=== PATIENT | male | born 1955 | race Caucasian/White ===

== ENCOUNTER 2024-09-29 07:58 | Emergency (ER) | payer OTHER, SELFPAY ==
[2024-09-29 08:08] VITALS: BP 144/110
[2024-09-29 08:14] VITALS: BP 155/118
[2024-09-29 08:18] VITALS: BMI 35.3
[2024-09-29 08:23] VITALS: BP 174/101
--- NOTE | 2024-09-29 08:23 | ED.GENMED ---
History of Present Illness
<Raúl Watson PA-C - Last Filed: 09/29/24 10:17>
General
Chief Complaint: Heart Rate Problem
Source: patient
Time Seen by Provider: 09/29/24 08:10
History of Present Illness
History of Present Illness:
69-year-old male with past medical history of hypertension, previous SVT and previous atrial fibrillation presenting to the emergency department after he was packing his car getting ready to go on a short trip when he noticed a fluttering sensation
in his chest that felt similar to previous episodes of SVT and A-fib. Patient states that other than feeling a little shaky from the elevated heart rate he otherwise feels fine. He took his usual medications as prescribed including his 100 mg of
p.o. metoprolol and 5 mg of Eliquis. He does note that over the weekend he felt he was having a gout flare and went to the urgent care who prescribed him prednisone and he is on day 2 of this. Denies any fevers or infectious symptoms. No chest
pain, no shortness of breath, no exertional dyspnea, no orthopnea, no cough, no fevers or infectious symptoms.
Past History
<Raúl Watson PA-C - Last Filed: 09/29/24 10:17>
Past History
ED Past Medical History: Arrthythmia (SVT), Cancer (Melanoma), HTN and Hypercholesterolemia
ED Past Surgical History: Orthopedic and Other
Social History
Tobacco: Non-smoker
Alcohol: None
Drug: None
Personal:
Living: with family
Review of Systems
<Raúl Watson PA-C - Last Filed: 09/29/24 10:17>
Review of Systems
All Other Systems: ROS reviewed and negative except as documented in HPI and ROS
Phy Exam
<Raúl Watson PA-C - Last Filed: 09/29/24 10:17>
Physical Exam
Physical Exam:
GENERAL: Alert , in no apparent distress
EYE: Clear conjunctiva
NECK: Supple
ENT: o/p clr, mmm.
CARDIAC: tachycardic, appears regular, rate between 150 and 170 bpm
LUNGS: Clear breath sounds bilaterally, no acute respiratory distress,
ABDOMEN: Soft, without focal tenderness, no r/g, no cvat
NEUROLOGICAL: Alert and oriented
SKIN: Warm and dry, skin intact.
MUSCULOSKELETAL: No edema, well perfused.
PSYCH: Normal and appropriate interaction.
Scores
<Raúl Watson PA-C - Last Filed: 09/29/24 10:17>
[id number] Score for Afib Stroke Risk
Age in Years (65=0, 65-74=1, >/=75=2): 65-74
Sex (Female=+1): Male
Congestive Heart Failure History (Yes=+1): No
Hypertension History (Yes=+1): Yes
Stroke/TIA/Thromboembolism History (Yes=+2): No
Vascular Disease History (Yes=+1): No
Diabetes Mellitus (Yes=+1): No
Score: 2
Anticoagulation Recommendations: Recommend anticoagulation (as validated in nonvalvular fib)
Heart Failure Risk
Heart Failure Risk Score: Not Applicable
Heart Score for Chest Pain Patients
STEMI patient?: Not applicable
Withdrawal Assessment of Alcohol
Withdrawal Assessment Completed?: Not applicable
<Meliton Lambert MD - Last Filed: 09/29/24 09:06>
[id number] Score for Afib Stroke Risk
Score: 2
Anticoagulation Recommendations: Recommend anticoagulation (as validated in nonvalvular fib)
Course
<Raúl Watson PA-C - Last Filed: 09/29/24 10:17>
Orders/Labs/Results
Orders:
Orders
09/29/24 07:59
EKG [Electrocardiogram (*1)] Urgent
Reason for Study: Bradycardia / Tachycardia
EKG- Treatment ONCE
09/29/24 08:23
Metoprolol [Lopressor] 5 mg .ROUTE .STK-MED ONE
Metoprolol [Lopressor] 5 mg IV NOW STA
09/29/24 08:29
Complete Blood Count/With Diff Urgent
Comprehensive Metabolic Panel Urgent
TSH Urgent
09/29/24 08:47
Adenosine [Adenocard] 18 mg .ROUTE .STK-MED ONE
09/29/24 08:50
Adenosine [Adenocard] 6 mg IV NOW STA
09/29/24 08:53
EKG [Electrocardiogram (*1)] Urgent
Reason for Study: Other
Other Reason for Exam: post Adenosine administration
EKG- Treatment ONCE
Abnormal Lab Results
09/29/24
08:29
WBC 12.8 H 10^3/uL
(4.8-10.8)
RBC 4.56 L 10^6/uL
(4.70-6.10)
MCV 94.3 H fL
(80.0-94.0)
MCH 33.3 H pg
(27.0-31.0)
Abs Immat Gran (auto) 0.1 H 10^3/uL
(0-0.05)
Absolute Neuts (auto) 9.3 H 10^3/uL
(1.4-6.5)
Absolute Monos (auto) 0.7 H 10^3/uL
(0.1-0.6)
Immature Gran % 0.6 H %
(0-0.5)
Lymphocytes % 20.0 L %
(20.5-51.1)
Glucose 206 H mg/dl
(70-99)
AST 71 H U/L
(17-59)
ALT 57 H U/L
(0-50)
09/29/24 08:29
09/29/24 08:29
Vital Signs
Initial and Last Documented VS:
Initial Vital Signs
Temp Pulse Resp BP Pulse Ox
97.9 F 172 18 144/110 98
09/29/24 08:08 09/29/24 08:08 09/29/24 08:08 09/29/24 08:08 09/29/24 08:08
Last Documented Vital Signs
Temp Pulse Resp BP Pulse Ox
97.9 F 74 14 132/80 95
09/29/24 08:08 09/29/24 09:15 09/29/24 09:15 09/29/24 09:00 09/29/24 09:15
<Meliton Lambert MD - Last Filed: 09/29/24 09:06>
Orders/Labs/Results
Orders:
Orders
09/29/24 07:59
EKG [Electrocardiogram (*1)] Urgent
Reason for Study: Bradycardia / Tachycardia
EKG- Treatment ONCE
09/29/24 08:23
Metoprolol [Lopressor] 5 mg .ROUTE .STK-MED ONE
Metoprolol [Lopressor] 5 mg IV NOW STA
09/29/24 08:29
Complete Blood Count/With Diff Urgent
Comprehensive Metabolic Panel Urgent
TSH Urgent
09/29/24 08:47
Adenosine [Adenocard] 18 mg .ROUTE .STK-MED ONE
09/29/24 08:50
Adenosine [Adenocard] 6 mg IV NOW STA
09/29/24 08:53
EKG [Electrocardiogram (*1)] Urgent
Reason for Study: Other
Other Reason for Exam: post Adenosine administration
EKG- Treatment ONCE
Abnormal Lab Results
09/29/24
08:29
WBC 12.8 H 10^3/uL
(4.8-10.8)
RBC 4.56 L 10^6/uL
(4.70-6.10)
MCV 94.3 H fL
(80.0-94.0)
MCH 33.3 H pg
(27.0-31.0)
Abs Immat Gran (auto) 0.1 H 10^3/uL
(0-0.05)
Absolute Neuts (auto) 9.3 H 10^3/uL
(1.4-6.5)
Absolute Monos (auto) 0.7 H 10^3/uL
(0.1-0.6)
Immature Gran % 0.6 H %
(0-0.5)
Lymphocytes % 20.0 L %
(20.5-51.1)
Glucose 206 H mg/dl
(70-99)
AST 71 H U/L
(17-59)
ALT 57 H U/L
(0-50)
09/29/24 08:29
09/29/24 08:29
Vital Signs
Initial and Last Documented VS:
Initial Vital Signs
Temp Pulse Resp BP Pulse Ox
97.9 F 172 18 144/110 98
09/29/24 08:08 09/29/24 08:08 09/29/24 08:08 09/29/24 08:08 09/29/24 08:08
Last Documented Vital Signs
Temp Pulse Resp BP Pulse Ox
97.9 F 74 14 132/80 95
09/29/24 08:08 09/29/24 09:15 09/29/24 09:15 09/29/24 09:00 09/29/24 09:15
<Raúl Watson PA-C - Last Filed: 09/29/24 10:17>
MDM/Problems Addressed
Differential Diagnosis Includes:
Atrial fibrillation, atrial flutter, SVT, valvular disease, electrolyte derangement, thyroid abnormality
MDM/Problems Addressed:
69-year-old male presenting to the ER for evaluation of sudden onset palpitations that began while packing his car. Symptoms occurring around 7:30 AM. Recently was started on prednisone for gout attack which could be likely cause for breakthrough
A-fib/a flutter. Mildly hypertensive here. Will treat with a 5 mg dose of Lopressor IV. EKG does appear to be A-fib/a flutter at a rate of around 170 bpm. Patient otherwise without any other concerns. Disposition pending.
Chronic conditions affecting care: Arrhythmia
Acute Exacerbation and/or Progression of Chronic Illness: Arrhythmia
<Raúl Watson PA-C - Last Filed: 09/29/24 10:17>
*Pulse Oximetry
Patient hypoxic: no
*EKG
Heart Rate: 172
Rhythm: atrial flutter
[place]: normal axis
Ischemia: ST depression (Lateral leads)
*Breakdown Person Interpretation
Rate: tachycardiac
Rhythm: atrial flutter
*Critical Care Note
Total Time (30-74mins, 75-104mins- exclusive of procedures): 30
comment:
Critical care statement: A total of 30 minutes of critical care time was provided for this patient. This includes management of unstable vital signs, evaluation of the patient at bedside, reviewing the patient's pertinent medical records, discussion
with consultants, review of old EKGs and review of pertinent medical records. This time with separate from time utilized to perform the aforementioned documented procedures
Data Reviewed
Review of Other/Old Records Reveals: Labs and Records
<Raúl Watson PA-C - Last Filed: 09/29/24 10:17>
Patient Management
Escalation/DeEscalation of care consider admission/obs:
Patient had minimal improvement with 5 mg of Lopressor IV. Heart rate remained around 148 bpm. Decision was made to proceed with adenosine 6 mg IV. Following the adenosine patient was in a normal sinus rhythm at a rate of [address] depressions
in the lateral leads resolved which was likely from rate related ischemia. Patient has a leukocytosis of 12,000 which is likely from the prednisone that he recently started. Will observe the patient in the ER to ensure he does not go back into an
episode of SVT. Anticipate discharge home with outpatient follow-up with cardiology.
Patient monitored following the adenosine and remains in a normal sinus rhythm. He continues to feel well and without any symptoms. At this time stable for discharge home, recommended close follow-up with cardiology. Patient aware of return
precautions.
ED Attending Note
<Raúl Watson PA-C - Last Filed: 09/29/24 10:17>
-
Portions of this chart may have been created with voice recognition software.� Occasional wrong word or��sound alike� substitutions may have occurred due to the inherent limitations of voice recognition software.
<Meliton Lambert MD - Last Filed: 09/29/24 09:06>
ED Attending Note
Patient seen and examined by attending physician: Yes
I performed the substantive portion of visit, reviewed & personally made and approve the management plan that is documented in note by myself or SATINDER.: Yes
ED Attending Note:
Sudden onset of rapid rhythm. No chest pain or shortness of breath. Somewhat unusual feeling however. History of atrial fibrillation and SVT. Has had adenosine in the past that fixed his SVT. He is also on Eliquis and rate control with
Lopressor.
On exam patient is nontoxic. Blood pressure is elevated. Rapid irregular rhythm in the 150-160 range. No murmur. Warm and dry. Perfusing well. Lungs are clear and equal.
EKG is either a 2-1 flutter versus SVT. Previous EKGs checked. Given that he is on a beta-jaqueline we tried a dose of Lopressor both for therapeutic and diagnostic reasons did not touch the rate significantly. Remains in a very regular rhythm in
the high 140s to 150s. EKG was sent to cardiology. They had already read the EKG and agree they were unsure whether this was a 2-1 flutter or SVT. Will now try adenosine
converted with 6 mg adenosine.
Discharge Plan
Departure
Patient Disposition: Home (Routine Discharge)
Date of Disposition: 09/29/24
Time of Disposition: 09:46
Patient with high blood pressure during this ER visit?: Yes
Discharge Problem:
Supraventricular tachycardia
Instructions: Supraventricular tachycardia (SVT)
Prescriptions:
No Action
losartan 50 mg tablet
50 mg PO DAILY Qty: 30 0RF
metoprolol succinate [Toprol XL] 100 mg tablet extended release 24 hr
100 mg PO BID Qty: 60 0RF
Referrals:
Benjamin Sanabria MD [Active] - (Cardiology - Call for appointment)
Luis Rousseau MD [Family Provider] -
Interventions
Interventions:
*Risk Screen - Suicide Last Done: 09/29/24 08:05
*General Assessment Last Done: 09/29/24 08:05
*Neglect/Abuse Screening Last Done: 09/29/24 08:05
*ED- Fall Risk Assessment Last Done: 09/29/24 08:19
*ED COVID-19 Vaccine History Last Done: 09/29/24 08:19
*Nursing Disposition Last Done: 09/29/24 10:13
ED- Cardiac Assessment Last Done: 09/29/24 08:19
ED- Pulmonary Assessment Last Done: 09/29/24 08:19
Discharge Date and Time
Discharge Date/Time: 09/29/24 10:14
Print Language: URDU
[2024-09-29] MEDS: LOPRESSOR 5 MG IV (08:26)
[2024-09-29 08:28] VITALS: BP 141/94
[2024-09-29 08:36] LABS: % Basophils 0.5 % (0-2); % Eosinophils 0.1 % (0-6); % Immature Granulocytes 0.6 % (0-0.5); % Monocytes 5.7 % (1.7-9.3); % Neutrophils 73.1 % (42.2-75.2); Absolute Basophils 0.1 10^3/uL (0-0.2); Absolute Immature Granulocytes 0.1 10^3/uL (0-0.05); Absolute Lymphocytes 2.6 10^3/uL (1.2-3.4); Absolute Monocytes 0.7 10^3/uL (0.1-0.6); Absolute Neutrophils 9.3 10^3/uL (1.4-6.5); Hemoglobin 15.2 g/dL (13.0-18.0); Mean Corp Hgb Conc. 35.3 g/dL (33.0-37.0); Mean Corpuscular Hgb 33.3 pg (27.0-31.0); Mean Corpuscular Volume 94.3 fL (80.0-94.0); Mean Platelet Volume 9.4 fL (7.4-10.4); Nucleated Red Blood Cells % 0 % (-); Platelet Count 345 10^3/uL (130-400); Red Blood Cell Count 4.56 10^6/uL (4.70-6.10); Red Cell Dist. Width 12.1 % (11.5-14.5); White Blood Cell Count 12.8 10^3/uL (4.8-10.8)
[2024-09-29] MEDS: ADENOCARD 6 MG IV (08:50)
[2024-09-29 08:57] LABS: ALT (SGPT) 57 U/L (0-50); AST (SGOT) 71 U/L (17-59); Albumin 3.9 g/dl (3.5-5.0); Alkaline Phosphatase 68 U/L (38-126); Blood Urea Nitrogen 19 mg/dl (9-20); Calcium 8.9 mg/dl (8.4-10.2); Carbon Dioxide 27 mmol/L (22-30); Chloride 104 mmol/L (98-107); Estimated Creatinine Clearance 111 ml/min; Glucose 206 mg/dl (70-99); Potassium 4.1 mmol/L (3.5-5.1); Sodium 138 mmol/L (135-145); Total Bilirubin 0.6 mg/dl (0.2-1.3); Total Protein 6.3 g/dl (6.3-8.2); eGFR > 60.00
[2024-09-29 09:00] VITALS: BP 132/80
[2024-09-29 09:28] LABS: TSH 1.49 uIU/ml (0.47-4.68)
== END 2024-09-29 10:14 | disposition home or self-care (01) ==
LOC: EMR 07:58
PROVIDERS: Physician Assistant Medical; EMERGENCY PHYSICIAN Emergency Medicine; FAMILY PHYSICIAN Internal Medicine
DX: I47.10 Supraventricular tachycardia, unspecified (principal); I10 Essential (primary) hypertension; I48.91 Unspecified atrial fibrillation; M10.9 Gout, unspecified; E78.00 Pure hypercholesterolemia, unspecified; Z85.820 Personal history of malignant melanoma of skin; Z79.899 Other long term (current) drug therapy; Z79.02 Long term (current) use of antithrombotics/antiplatelets; Z88.8 Allergy status to other drugs, medicaments and biological substances
CPT/HCPCS: 99291; 96374; 96375; 80053; 84443; 85025; 93005; J0153